=== PATIENT | female | born 1995 | race Caucasian/White ===

== ENCOUNTER 2019-11-02 00:15 | Emergency (ER) | payer OTHER, SELFPAY ==
[2019-11-02] MEDS ORDERED: Lidocaine Viscous Sol 2% 15 ml UD Cup ONE (00:40)
[2019-11-02] MEDS ORDERED: Mag-Al 1200 mg/1200 mg/30 ML UDCUP ONE (00:40)
[2019-11-02 01:06] LABS: BHCG - Serum Negative (NEGATIVE); Hemoglobin 14.6 g/dL (12.0-16.0); Mean Corpuscular HGB CONC 35.2 g/dL (32.0-36.0); Mean Corpuscular Hemoglobin 33.8 pg (27.0-31.0); Mean Corpuscular Volume 96.1 fL (78.0-98.0); Mean Platelet Volume 8.4 fL (7.4-10.4); Platelet Count 165 thou/uL (130-400); Pregs Control Background? CLEAR/WHITE (CLR/WHITE); Pregs Control Bar Appear? YES (CONTROL BAR); RBC Distribution Width 11.4 % (11.5-14.5); Red Blood Cell (RBC) Count 4.33 mill/uL (4.20-5.40); White Blood Cell (WBC) Count 7.7 thou/uL (4.8-10.8)
[2019-11-02 01:25] LABS: Anion Gap 17 mmol/L (10-20); BUN (Urea Nitrogen) 10 mg/dL (7.0-18.7); Band 23 % (5-11); Calc. Creatinine Clearance 0 mL/min (70-130); Calcium 8.9 mg/dL (7.8-10.44); Carbon Dioxide 19 mmol/L (22-29); Chloride 101 mmol/L (98-107); Estimated GFR-MDRD Greater than 90; Glucose 90 mg/dL (70-105); Lymphocytes 21 % (21-51); MDiff Complete? YES; Monocytes 4 % (0-10); Neutrophil 52 % (42-75); Potassium 3.3 mmol/L (3.5-5.1); Sodium 134 mmol/L (136-145)
[2019-11-02] MEDS ORDERED: cefTRIAXone\\ROCEPHIN 1 GM VIAL ONE (01:36)
[2019-11-02] MEDS ORDERED: Acetaminophen 500 MG TAB ONE (01:37)
--- NOTE | 2019-11-02 07:47 | RAD ---
EXAM: Single view of the chest HISTORY: Chest pain COMPARISON: 11/06/2014 FINDINGS: Single view of the chest shows a normal sized cardiomediastinal silhouette. There is questi onable airspace opacity in the right lower lobe. No pleural effusion is seen. There is mild scoliotic curvature of the spine. Bilateral nipple piercings are seen. IMPRESSION: Possible mild right lower lobe infiltrate
== END 2019-11-02 02:07 | disposition home or self-care (01) ==
LOC: ERS 00:15
DX: J18.9 Pneumonia, unspecified organism (principal); I38 Endocarditis, valve unspecified; I35.0 Nonrheumatic aortic (valve) stenosis; Q21.1 Atrial septal defect
CPT/HCPCS: 36415; 71045; 80048; 84484; 84703; 85025; 93005; 96374; J0696